=== PATIENT | female | born 1995 | race Caucasian/White ===

== ENCOUNTER 2025-06-03 14:48 | Emergency (ER) | payer OTHER ==
[2025-06-03] MEDS ORDERED: Amoxicillin/Potassium Clav 875 MG TAB ONE (15:24)
== END 2025-06-03 15:28 | disposition home or self-care (01) ==
LOC: MADERS 14:48
DX: K08.89 Other specified disorders of teeth and supporting structures (principal); F17.210 Nicotine dependence, cigarettes, uncomplicated
CPT/HCPCS: 99282